=== PATIENT | female | born 1945 | race Caucasian/White ===

== ENCOUNTER → 2016-08-26 | Outpatient (CLI) | payer MEDICARE, OTHER | END | disposition home or self-care (01) | LOC: RAD.S 08-21 16:22 | DX: R10.2 Pelvic and perineal pain (principal); M25.551 Pain in right hip; M25.552 Pain in left hip; N28.89 Other specified disorders of kidney and ureter ==

== ENCOUNTER 2016-10-06 11:00 | Emergency (ER) | payer MEDICARE, OTHER ==
--- NOTE | 2016-10-09 09:05 | ER ---
ADMIT: 10/06/2016 RM/LOC: ER [facility] MR#: [id number] [address] [facility] [address] [place] [id number] [address] [place] [address] Emergency Room Report SEX: F AGE: 71 : 1945 DATE: 10/06/2016 TIME: 1100. Please refer to my T-sheet for complete H and P. Briefly, the patient is a 71-year-old, who is postop two weeks from a right nephrectomy for a renal mass. They thought was benign. The patient says comes in with blood in her urine just started today and she says she does not really feel that bad. Took a pain pill for which she got here and does not want anything for the pain. PHYSICAL EXAMINATION: VITAL SIGNS: Blood pressure 167/89, pulse 97, respirations 21, temp 99.8, and sat 95%. GENERAL: No acute distress. HEENT: Grossly normal. LUNGS: Clear. ABDOMEN: Has a midline incision with satinder that seems to be holding well together. Really nontender. No rebound or guarding. SKIN: No rash. EMERGENCY DEPARTMENT COURSE: CT scan revealed postop right nephrectomy with some seroma. No gross findings of bleeding. The pancreatic mass that is really minimally changed from 4 years ago. CBC was normal except hemoglobin 9.1. Chemistries normal except glucose 122 and creatinine 1.3. Her INR was 1.58. UA showed 232 white cells, 2044 red cells, 3+ leukocytes, was sent for culture. I gave her Cipro [address] Finnegan, he was on-call for Dr. Isaac. He reviewed her chart, gave me a call back. He suggested hold the Coumadin, antibiotics and they would follow her up closely. The patient really did want to be admitted at this time. Did not want to go down to [place] either, but was only to start antibiotics. Would return if problems. ASSESSMENT: 1. Gross hematuria. 2. Status post right nephrectomy. 3. Anemia that is improved from her postop hemoglobin. 4. Pancreatic mass that seems mostly unchanged, the patient is aware of this. PLAN: Cipro 500 b.i.d. for 7 days. Return if worse. Hold the Coumadin until she follows up with her appointment on Wednesday. Jean Niño MD/ [facility] JOB #: [id number] CC: Jean Niño MD, Attending Physician ADMIT: 10/06/2016 RM/LOC: [facility] MR#: [id number] [address] [place], [place] [id number] [address] [place] [address] Emergency Room Report SEX: F AGE: 71 : 1945 Rc Christie MD, Family Physician
== END 2016-10-06 14:42 | disposition home or self-care (01) ==
LOC: ER 11:00
DX: R31.0 Gross hematuria (principal); D64.9 Anemia, unspecified; K86.89 Other specified diseases of pancreas; Z90.5 Acquired absence of kidney; Z95.1 Presence of aortocoronary bypass graft